=== PATIENT | female | born 1980 | race Caucasian/White ===

== ENCOUNTER 2020-03-29 14:39 | Emergency (ER) | payer OTHER ==
--- NOTE | 2020-03-29 17:49 | EDM.PDOC ---
ED HPI GENERAL MEDICAL PROBLEM - General Chief Complaint: Back Pain or Injury Stated Complaint: LOWER BACK PAIN Time Seen by Provider: 03/29/20 17:49 Source of Information: Reports: Patient History Limitations: Reports: No Limitations - History of Present Illness INITIAL COMMENTS - FREE TEXT/NARRATIVE: 40 years old female patient presented to the ER with a chief complaint of acute exacerbation of chronic low back pain. History of disks ectomy 9 years ago at [facility]. Since then intermittent low back pain. Has been getting worse for the last 2 weeks. Denies any recent trauma or injury. Pain radiated down her left leg. Worse with movement. Standing and sitting, twisting and bending. Denies any loss of control of urine or stool. Denies any leg weakness or numbness. Denies any urinary symptom. Denies any fever. Denies any chest pain shortness breath. She was seen by her primary doctor 10 days ago and was given a course of prednisone. Patient stated it does not help. She has been taking ibuprofen as well and seems to be helping slightly. Left Leg Pain Score (Numeric/FACES): 10 - Related Data Allergies Allergy/AdvReac Type Severity Reaction Status Date / Time bacitracin Allergy Rash Verified 03/29/20 16:30 lidocaine [From Mycitracin] Allergy Rash Verified 03/29/20 16:30 neomycin [From Mycitracin] Allergy Rash Verified 03/29/20 16:30 polymyxin B [From Mycitracin] Allergy Rash Verified 03/29/20 16:30 Home Meds: Home Meds DULoxetine [Cymbalta] 20 mg PO DAILY 03/29/20 [History] Famotidine [Pepcid] 0 mg PO DAILY 03/29/20 [History] Fluticasone Propionate [Flovent HFA] 1 puff INH DAILY 03/29/20 [History] Past Medical History HEENT History: Reports: Impaired Vision Respiratory History: Reports: Asthma [employer] History: Reports: Psychiatric History: Reports: Anxiety - Past Surgical History GI Surgical History: Reports: Colonoscopy, EGD Neurological Surgical History: Reports: Discectomy Social & Family History - Tobacco Use Smoking Status *Q: Never Smoker - Caffeine Use Caffeine Use: Reports: Soda - Alcohol Use Days Per Week of Alcohol Use: 7 Number of Drinks Per Day: 2 Total Drinks Per Week: 14 - Recreational Drug Use Recreational Drug Use: No ED ROS GENERAL - Review of Systems Review Of Systems: Comprehensive ROS is negative, except as noted in HPI. ED EXAM,LOWER BACK PAIN/INJURY - Physical Exam Exam: See Below Exam Limited By: No Limitations General Appearance: Alert, WD/WN, No Apparent Distress Ears: Normal External Exam, Normal Canal, Hearing Grossly Normal, Normal TMs Head: Atraumatic, Normocephalic Neck: Normal Inspection, Supple, Non-Tender, Full Range of Motion Respiratory/Chest: No Respiratory Distress, Lungs Clear, Normal Breath Sounds, No Accessory Muscle Use, Chest Non-Tender Cardiovascular: Normal Peripheral Pulses, Regular Rate, Rhythm, No Edema, No Gallop, No JVD, No Murmur, No Rub GI/Abdominal: Normal Bowel Sounds, Soft, Non-Tender, No Organomegaly, No Disten tion, No Abnormal Bruit, No Mass Back Exam: Normal Inspection, Full Range of Motion, Paraspinal Tenderness, Other (Left paraspinal muscle tenderness. No erythema or swelling. No deformity.). No: CVA Tenderness (R), CVA Tenderness (L), Decreased Range of Motion, Vertebral Tenderness Extremities: Normal Inspection, Normal Range of Motion, Non-Tender, No Pedal Edema, Normal Capillary Refill. No: Juan's Sign, Redness Neurological: Alert, Normal Mood/Affect, Normal Dorsiflexion, CN II-XII Intact, Normal Plantar Flexion, Normal Gait, Normal Reflexes, No Motor/Sensory Deficits, Oriented x 3 Skin Exam: Warm, Dry, Intact, Normal Color, No Rash Course - Vital Signs Last Recorded V/S: Last Vital Signs Temp 35.9 C L 03/29/20 16:27 Pulse 109 H 03/29/20 16:27 Resp 16 03/29/20 16:27 BP 175/104 H 03/29/20 16:27 Pulse Ox 95 03/29/20 16:27 - Orders/Labs/Meds Meds: Medications Discontinued Medications Generic Name Dose Route Start Last Admin Trade Name Court PRN Reason Stop Dose Admin Cyclobenzaprine HCl 10 mg 03/29/20 17:59 03/29/20 18:18 Flexeril PO 03/29/20 18:00 10 mg ONETIME ONE Administration Hydromorphone HCl 0.5 mg 03/29/20 17:56 03/29/20 18:13 Dilaudid IM 03/29/20 17:57 0.5 mg ONETIME ONE Administration Ketorolac Tromethamine 60 mg 03/29/20 17:56 03/29/20 18:16 Toradol IM 03/29/20 17:57 60 mg ONETIME ONE Administration - Radiology Interpretation Free Text/Narrative:: Patient was seen and examined shortly after arrival. Stable. This is most likely acute axis extirpation of her chronic low back pain with radiculopathy. No sign of cauda equina. Given 0.5 mg IV and Dilaudid, 60 mg IM Toradol and 10 mg oral Flexeril. Symptoms markedly improved. She is now up and walking. Feeling much better. Advised to Follow-up closely with her primary doctor Discuss MRI of lower back Referral to her spine surgeon Do not drive oral. Machines when taken [place] Come back for any concern or any worsening symptom Patient agrees with the plan. Stable for discharge Departure - Departure Time of Disposition: 19:16 Disposition: Home, Self-Care 01 Condition: Good Clinical Impression: Acute exacerbation of chronic low back pain - Discharge Information Instructions: Chronic Back Pain, Radicular Pain, Acute Back Pain, Adult Referrals: PCP,None [Primary Care Provider] - Forms: ED Department Discharge Additional Instructions: Advised to Follow-up closely with her primary doctor within 1 week, sooner if symptom worsen Discuss MRI of lower back Referral to her spine surgeon Do not drive oral. Machines when taken [place] Come back for any concern or any worsening symptom Sepsis Event Note (ED) - Evaluation Sepsis Screening Result: No Definite Risk - Focused Exam Vital Signs: Vital Signs Temp Pulse Resp BP Pulse Ox 03/29/20 16:27 35.9 C L 109 H 16 175/104 H 95 03/29/20 16:07 35.9 C L 109 H 16 175/104 H 95 - Assessment/Plan Plan: Advised to Follow-up closely with her primary doctor within 1 week, sooner if symptom worsen Discuss MRI of lower back Referral to her spine surgeon Do not drive oral. Machines when taken [place] Come back for any concern or any worsening symptom
[2020-03-29] MEDS ORDERED: HYDROmorphone 1 MG/ML Syringe IM ONE (17:56)
[2020-03-29] MEDS ORDERED: Ketorolac 60 MG/2 ML SDV IM ONE (17:56)
[2020-03-29] MEDS ORDERED: Cyclobenzaprine 10 MG Tab PO ONE (17:59)
== END 2020-03-29 19:26 | disposition home or self-care (01) ==
LOC: JP.ED 14:39
DX: M54.5 Low back pain (principal); G89.29 Other chronic pain; J45.909 Unspecified asthma, uncomplicated; F41.9 Anxiety disorder, unspecified; Z88.1 Allergy status to other antibiotic agents; Z88.4 Allergy status to anesthetic agent; Z79.899 Other long term (current) drug therapy
CPT/HCPCS: 96372; 99283; A9270; J1170; J1885